=== PATIENT | male | born 2000 | race Caucasian/White ===

== ENCOUNTER 2023-10-30 13:11 | Emergency (ER) | payer OTHER ==
[~2023-10-30] VITALS: Ht 188 cm; Wt 78.7 kg
[2023-10-30 15:13] LABS: Rapid Influenza A Negative (Negative); Rapid Influenza B Negative (Negative)
[2023-10-30 15:16] LABS: COVID19 ANTIGEN SOFIA FIA POSITIVE (NEGATIVE)
[2023-10-30] MEDS ORDERED: PROM1SOL4 PO (15:19)
[2023-10-30] MEDS ORDERED: IBUP-1454 PO (15:19)
[2023-10-30 15:21] VITALS: BP 113/59; PULSE 78; RESP 17; TEMP 98.7; O2SAT 98
[2023-10-30] MEDS ORDERED: ZOFR4T PO (15:23)
== END 2023-10-30 15:22 | disposition home or self-care (01) ==
LOC: ER 13:11
DX: U07.1 COVID-19 (principal)
CPT/HCPCS: 36415; 87426; 87804